=== PATIENT | female | born 1995 | race Caucasian/White ===

== ENCOUNTER 2019-06-21 10:28 | Outpatient (CLI) | payer OTHER, SELFPAY ==
[2019-06-21 11:38] VITALS: BMI 25.4
[2019-06-21 11:44] VITALS: BP 138/81; RESP 18; TEMP 37.3
[2019-06-21 13:50] VITALS: BP 138/81; PULSE 80; RESP 18; TEMP 37.3
== END 2019-06-21 10:29 | disposition home or self-care (01) ==
LOC: OPS 10:30
PROVIDERS: Family Provider Family Medicine; Visit Provider Family Medicine
DX: Z34.80 Encounter for supervision of other normal pregnancy, unspecified trimester (principal); Z31.82 Encounter for Rh incompatibility status; Z67.91 Unspecified blood type, Rh negative
CPT/HCPCS: 36430; 86850; 86900; 90384

== ENCOUNTER 2019-08-20 22:46 | Inpatient (IN) | payer OTHER, SELFPAY ==
[2019-08-20] VITALS (9 sets, daily range): BP systolic 0–152; BP diastolic 0–86; PULSE 74–126; RESP 18; TEMP 36.5–36.8; BMI 25.9
[2019-08-20 23:25] LABS: Basophils % 0.2 %; Eosinophils % 0.2 %; Hematocrit 37.9 % (37.0-47.0); Hemoglobin 12.8 g/dL (11.5-15.3); Lymphocytes # 1.6 10^3/uL (0.8-4.8); Lymphocytes % 14.1 %; Mean Corpuscular HGB Conc 33.8 g/dL (30.0-36.0); Mean Corpuscular Hemoglobin 29.2 pg (28.0-34.0); Mean Corpuscular Volume 86.3 fL (81-99); Mean Platelet Volume 12.2 fL (7.4-10.4); Monocytes # 0.9 10^3/uL (0.2-0.9); Monocytes % 7.8 %; Neutrophils # 8.7 10^3/uL (1.8-7.7); Neutrophils % 77.3 %; Nucleated Red Blood Cells % 0 %; Platelet Count 168 10^3/cmm (130-400); Red Blood Count 4.39 10^6/uL (4.1-5.3); Red Cell Distribution Width 14.5 % (12.1-15.1); White Blood Count 11.2 10^3/uL (4.0-10.0)
[2019-08-20 23:25] LABS: Glucose Point of Care 98 mg/dL (70-110)
[2019-08-21] VITALS (20 sets, daily range): BP systolic 102–146; BP diastolic 53–88; PULSE 73–111; RESP 14–18; TEMP 36.7–37.1
--- NOTE | 2019-08-21 00:39 | P.PCNOB_ITS ---
Delivery Note: Date of delivery: August 21, 2019 This 1 now para 1 female with an EDC of 08/28/2019 began having con tractions early the morning prior to her arrival to [facility] labor and delivery. She tanisha on and off through the day and they slowly became stronger. Around 1800 they became much stronger and she wrapped [facility] Labor and Delivery OB department late in the evening. Upon arrival she was approximately 3 to 4 cm dilated with a bulging bag of water. She was admitt ed to the hospital. Sometime shortly thereafter she had spontaneous rupture of membranes and dilated quickly to 8 to 9 cm dilatation. This physician was called and arrived to the hospital. She was found to be completely dilated and was placed in delivery position. She was able to push within a few contractions and delivered by spontaneous vaginal delivery a healthy, viable female at 0000 a.m. Upon delivery of the head the mouth and nose were suctioned at the perineum and a nuchal cord x1 was reduced. The left shoulder anteriorly followed by the right shoulder posteriorly delivered followed by the remainder of the infant. The was again suctioned after delivery and then laid on mother's abdomen. After approximately 1 minute the umbilical cord was clamped and then cut by the 's father. Umbilical cord had 3 blood vessels. There was a small second-degree episiotomy that extended to approximately 1/3 degree extension. This was repaired using local anesthesia with layered surgical closure and Vicryl suture. There was no other lacerations noted and estimated blood loss was approximately 218 mL. The infant weighed 7 pounds 10 ounces with Apgars of 8 and 9 at 1 and 5 minutes respectively. There was initially some grunting but that resolved with delay of approximately 8 mL of clear fluid and skin to skin with mom. Presently both mother and are doing well. Pre-Delivery Course: Patient was followed by this physician throughout her course without significant problems. Maternal blood type was O- with antibody screen negative. Rubella was immune group B strep was negative. Hepatitis B hepatitis C RPR and HIV were all negative. The patient was a gestational diabetic which was controlled with oral metformin extended release 500 mg daily. She has spontaneous onset of labor early the morning of the day prior to delivery. Delivery: Spontaneous vaginal delivery. A&P Assessment and plan (1) Normal spontaneous vaginal delivery: Patient will be followed for routine postdelivery care. We will monitor glucose as needed. Reevaluation around 07 30 this morning found the patient to be doing well with just mild lochia. She is ambulating well and tolerating a regular diet. Continue routine postdelivery care. Status: Acute Code(s): O80 - Encounter for full-term uncomplicated delivery Coding Level of Care Code Acute Casing Grader for Chg Fwd Diagnoses Normal spontaneous vaginal delivery O80
[2019-08-21 02:42] LABS: Glucose Point of Care 102 mg/dL (70-110)
--- NOTE | 2019-08-21 03:17 | PC.NURSE ---
0238 08/21/2019 This nurse assisted patient to bathroom. Patient noted that she felt as if she was going to pass out. cool rags applied to patients neck, fan circulating air, and accucheck done. Patient drank 2 apple juice containers, stated she felt as if she would be able to ambulate. Patient was assisted back to labor bed by this nurse. Patient tolerated activity well. Will continue to monitor. DARYL LONG
--- NOTE | 2019-08-21 04:10 | NUR.SHIFT ---
0400 08/21/2019 Patient moved to . DARYL RN
[2019-08-21] MEDS: lanolin oint 7 gm 1 APPLIC TOPICAL ×2 (06:52→21:30)
[2019-08-21] MEDS: prenatal vitamin Capsule 1 CAP PO (08:13)
[2019-08-21] MEDS: docusate sodium 100 mg Capsule PO ×2 (08:13→18:26)
[2019-08-21 12:47] LABS: Hematocrit 31.7 % (37.0-47.0); Hemoglobin 10.7 g/dL (11.5-15.3); Mean Corpuscular HGB Conc 33.8 g/dL (30.0-36.0); Mean Corpuscular Hemoglobin 29.2 pg (28.0-34.0); Mean Corpuscular Volume 86.4 fL (81-99); Mean Platelet Volume 11.5 fL (7.4-10.4); Platelet Count 147 10^3/cmm (130-400); Red Blood Count 3.67 10^6/uL (4.1-5.3); Red Cell Distribution Width 14.6 % (12.1-15.1); White Blood Count 14.5 10^3/uL (4.0-10.0)
[2019-08-22 02:10] VITALS: BP 121/83; PULSE 87; RESP 16; TEMP 36.5
[2019-08-22 04:05] VITALS: BP 109/67; PULSE 95; RESP 16; TEMP 36.7
--- NOTE | 2019-08-22 07:03 | P.DS_ITS ---
Discharge Providers CANDY FORMING MACHINE OPERATOR Date of Admission: 08/20/19 22:46 Date of Discharge: 08/22/19 Attending Provider at Admission: Reynaldo Banda MD Attending Provider at Discharge: Reynaldo Banda MD Primary CANDY FORMING MACHINE OPERATOR: Solo Diagnoses at Discharge Discharge Diagnosis (1) Normal spontaneous vaginal delivery: Status: Acute Problem details: Patient delivered by spontaneous vaginal delivery at midnight yesterday. She has done well since delivery. She is ambulating well and tolerating a regular diet without problems. The infant is breast-feeding well and mom is felt to be stable for discharge home. Reason for Visit Reason for Visit: Reason For Visit: CONTRACTIONS Hospital Course Hospital Course: See above, the patient has done extremely well since delivery and is stable for discharge home. Discharge Summary: There have been no problems since delivery and the infant is breast-feeding well. The patient has just mild lochia was no significant clots or cramps. Information Peripartum Data: Infant Delivery Method: Vaginal Physical Exam Const: COMMON NORMALS: no apparent distress, oriented x3 and well nourished GENERAL APPEARANCE: cooperative ORIENTATION/CONSCIOUSNESS: Yes awake Resp: COMMON NORMALS: normal respiratory effort, no retractions, no use of accessory muscles and clear to auscultation bilaterally AUSCULTATION: clear to auscultation bilaterally Cardio: COMMON NORMALS: regular rate, regular rhythm and no murmurs RATE: regular rate RHYTHM: regular rhythm GI: COMMON NORMALS: normal to inspection, nondistended, normoactive bowel sounds, soft to palpation (Fundus is firm.) and non-tender PALPATION: Yes soft (Fundus is firm.) : COMMON NORMALS: Yes no CVA tenderness BLADDER/KIDNEY EXAM: Yes no CVA tenderness Back/Pelvis: COMMON NORMALS: no CVA tenderness Extremity: COMMON NORMALS: normal to inspection, full ROM, normal capillary refill and no pedal edema Neuro: COMMON NORMALS: oriented x3 and CN's II-XII intact bilaterally Psych: COMMON NORMALS: mental status grossly normal Discharge Data Data Completed and Pending: Pending at discharge Category Date Time Status Antibody Identifi cation Routine Lab 08/21/19 05:00 Results Complete Crossmat ch Routine Lab 08/21/19 05:00 Results Rho D Immune Glob ulin Routine Lab 08/21/19 05:00 Results Type and Screen R outine Lab 08/21/19 05:00 Results Labs from last 24 hours 08/21/19 08/21/19 08/21/19 12:29 12:29 05:00 WBC 14.5 H RBC 3.67 L Hgb 10.7 L Hct 31.7 L MCV 86.4 MCH 29.2 MCHC 33.8 RDW 14.6 Plt Count 147 MPV 11.5 H Blood Type O Negative Rho(D) Type Negaive Antibody Screen Positive Antibody Identific ation Anti-D Screen Negative Vitals: Last Vital Signs Temp 97.7 F 08/22/19 02:10 Pulse 87 08/22/19 02:10 Resp 16 08/22/19 02:10 BP 121/83 08/22/19 02:10 Discharge Plan Discharge Patient Disposition: Home, Self-Care Condition: Stable Prescriptions: New Dermoplast (with menthol) 20-0.5 % Aerosol 1 spray topical PRN PRN (Reason: Pain) Qty: 60 RF: 1 ibuprofen 800 mg Tablet 800 mg PO TID Qty: 90 RF: 2 docusate sodium 100 mg Capsule 100 mg PO BID Qty: 60 RF: 1 Lanolin (HPA) 100 % Cream 1 applic topical PRN PRN (Reason: Dryness) Qty: 60 RF: 1 Continued acyclovir 400 mg tablet 400 mg PO DAILY RF: 0 PNV cmb#95-ferrous fumarate-FA [] 28 mg iron- 800 mcg Tablet 1 tab PO DAILY RF: 0 Discontinued metformin 500 mg Tablet 500 mg PO DAILY RF: 0 Discharge Orders: Discharge Order (Routine); Ordered 08/22/19 Ordered By: Reynaldo Banda Referrals: Reynaldo Banda MD [Family Provider] - Discharge Diet: Regular Discharge Activity: Resume usual activity Activity Restrictions/Additional Instructions: Please make appointment with this physician for 6 weeks and as needed. Discharge Attestations CANDY FORMING MACHINE OPERATOR Time Spent in Discharge Care*: less than 30 min Specific Discharge Activities: Specific discharge activities: educating patient, documenting/other paperwork and evaluating patient/reviewing data Status at Discharge: Cognitive status at discharge: cognitively intact , Behavioral status at discharge: cooperative , Functional status at discharge: independent ambulation Overall status at discharge: patient is back to baseline Coding Level of Care Code Acute Physician President for g Fwd Diagnoses Normal spontaneous vaginal delivery O80
[2019-08-22 08:45] VITALS: BP 109/72; PULSE 86; RESP 16; TEMP 36.7
[2019-08-22] MEDS: prenatal vitamin Capsule 1 CAP PO (08:51)
[2019-08-22] MEDS: docusate sodium 100 mg Capsule PO (08:53)
[2019-08-22 11:30] VITALS: BP 131/84; PULSE 83; RESP 16; TEMP 36.6
== END 2019-08-22 11:40 | disposition home or self-care (01) | DRG 807 ==
LOC: OBGYN 08-22 07:03 → OPOB 08-23 08:31
PROVIDERS: Admitting Provider Family Medicine; Family Provider Family Medicine; Visit Provider Family Medicine
DX: O24.425 Gestational diabetes mellitus in childbirth, controlled by oral hypoglycemic drugs (principal); Z37.0 Single live birth; O70.1 Second degree perineal laceration during delivery; Z3A.38 38 weeks gestation of pregnancy; Z79.84 Long term (current) use of oral hypoglycemic drugs
CPT/HCPCS: 12345; 36415; 36416; 59409; 80500; 82962; 85025; 85027; 85460; 86850; 86870; 86900; 90384; 96372; 98960; 99211

== ENCOUNTER 2022-07-01 06:33 | Outpatient (CLI) | payer OTHER, SELFPAY ==
--- NOTE | 2022-07-01 | US_ITS ---
WS: [id number] EARLY OBSTETRICAL ULTRASOUND (<14 WEEKS). HISTORY: 1ST TRI W/GDM COMPARISON: None available. Single intrauterine gestational sac is identified. Cardiac activity at 167 BPM. [place]-rump length samina sures 3.9 cm which corresponds to a gestation of 10w6d. Normal-appearing yolk sac and amnion demonstr ated. No subchorionic hemorrhage. No free fluid. Normal size ovaries with no mass. Small corpus luteum cyst RIGHT ovary. US/US OB <= 14 weeks fetus [id number] IMPRESSION: 1. Single intrauterine gestation of 10 weeks 6 days with an EDC of 01/21/2023. 2. Normal cardiac activity.
== END 2022-07-01 06:34 | disposition home or self-care (01) ==
LOC: RAD 06:38
PROVIDERS: PCP Family Medicine; Visit Provider Family Medicine
DX: Z34.91 Encounter for supervision of normal pregnancy, unspecified, first trimester (principal); Z86.32 Personal history of gestational diabetes; Z3A.14 14 weeks gestation of pregnancy
CPT/HCPCS: 76801

== ENCOUNTER 2022-10-25 11:09 | Emergency (ER) | payer OTHER, SELFPAY ==
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
[2022-10-25 11:19] VITALS: BP 109/66; PULSE 79; RESP 14; O2SAT 100; BMI 24.5
== END 2022-10-25 11:43 | disposition home or self-care (01) ==
PROVIDERS: Emergency Provider Emergency Medicine; PCP Family Medicine
DX: O9A.213 Injury, poisoning and certain other consequences of external causes complicating pregnancy, third trimester (principal); S13.4XXA Sprain of ligaments of cervical spine, initial encounter; Z3A.28 28 weeks gestation of pregnancy; V89.2XXA Person injured in unspecified motor-vehicle accident, traffic, initial encounter
CPT/HCPCS: 99282

== ENCOUNTER 2022-10-25 11:37 | Outpatient (CLI) | payer OTHER, SELFPAY ==
[2022-10-25] VITALS (11 sets, daily range): BP systolic 89–110; BP diastolic 52–70; PULSE 73–86; RESP 17; TEMP 37.4–37.5; BMI 24.5
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
== END 2022-10-25 14:19 | disposition home or self-care (01) ==
LOC: OPOB 11:39 → OBGYN 11:40
PROVIDERS: PCP Family Medicine; Visit Provider Family Medicine
DX: Z04.1 Encounter for examination and observation following transport accident (principal); Z3A.00 Weeks of gestation of pregnancy not specified
CPT/HCPCS: 59025; 76819; 99211

== ENCOUNTER 2023-01-11 23:56 | Inpatient (IN) | payer OTHER, SELFPAY ==
[2023-01-11 21:40] VITALS: BMI 25.9
[2023-01-11 21:53] VITALS: BP 121/76; PULSE 94
[2023-01-11 22:21] VITALS: RESP 16
[2023-01-11 22:32] VITALS: BP 108/59; PULSE 84
[2023-01-11 22:39] VITALS: BP 114/64; PULSE 95
[2023-01-11 22:54] VITALS: BP 115/64; PULSE 75
[2023-01-11 23:03] LABS: Basophils % 0.3 %; Eosinophils % 0.3 %; Hematocrit 33.7 % (37.0-47.0); Hemoglobin 11.3 g/dL (11.5-15.3); Lymphocytes # 2.6 10^3/uL (0.8-4.8); Lymphocytes % 21.3 %; Mean Corpuscular HGB Conc 33.5 g/dL (30.0-36.0); Mean Corpuscular Hemoglobin 28.6 pg (28.0-34.0); Mean Corpuscular Volume 85.3 fl (81-99); Mean Platelet Volume 10.8 fL (7.4-10.4); Monocytes % 8.5 %; Neutrophils % 68.4 %; Nucleated Red Blood Cells % 0 %; Platelet Count 187 10^3/cmm (130-400); Red Blood Count 3.95 10^6/uL (4.1-5.3); Red Cell Distribution Width 12.9 % (12.1-15.1)
[2023-01-12] VITALS (24 sets, daily range): BP systolic 105–172; BP diastolic 55–89; PULSE 70–114; RESP 16–17; TEMP 36.1–36.7
[2023-01-12] MEDS: lidocaine 2% INJ 20 mL INJECTION (00:40)
--- NOTE | 2023-01-12 01:13 | PM.OPHPUD ---
Labor & Delivery H&P Update Date of Procedure: January 12, 2023 Date H&P Performed: 01/11/23 Admission Diagnosis: 28-year-old 3 para 1-0-1-1 with an estimated gestational age of 38 weeks and 5 days who presented to the hospital in active labor Planned procedure: Spontaneous vaginal delivery Other information: The patient had a relatively unremarkable . Her blood type was O-. Her antibody screen was negative. She passed her glucose screen. She is rubella immune. The remainder of her infectious disease profile was within normal limits. She was GBS negative. She does have a history of genital herpes and has received acyclovir since 36 weeks. She began having contractions a few days prior to admission to the hospital. They gradually increased, but got progressively worse today after doctor's appointment. Her membranes were stripped at that appointment. Related Problem List Diagnoses (1) 38 weeks gestation of : A&P Assessment and plan (1) 38 weeks gestation of : I anticipate routine labor and spontaneous vaginal delivery. Status: Acute
--- NOTE | 2023-01-12 01:36 | PM.DELIVERY ---
Delivery Note: Date of delivery: January 12, 2023 Pre-delivery diagnoses: 28-year-old 3 para 1-0-1-1 at 38 weeks estimated gestational age in active labor Post-delivery diagnoses: Status post spontaneous vaginal delivery Procedure: Spontaneous vaginal delivery Delivering Physician: Kian Du Estimated blood loss (mL): 100 Pre-Delivery Course: The patient presented to the hospital in active labor. Her membranes were intact. She did not receive an epidural. She progressed to an anterior lip without difficulty. An amniotomy was performed. She then progressed to complete within a couple of contractions. Delivery: DELIVERY: The patient progressed to complete without difficulty. She delivered a male with a weight of 6 pounds 10 ounces with Apgars of 8, 9. The baby was delivered from the JADE position and placed on the mother's abdomen. The cord was then clamped and cut. There was no nuchal cord. There was no meconium. The placenta and 3 vessel cord were delivered intact shortly thereafter. The perineum and vaginal vault were carefully examined. No lacerations were noted. Both the mother and the baby were in stable condition. Post-Delivery Status: Good A&P Assessment and plan (1) 38 weeks gestation of : I anticipate routine care (2) Spontaneous vaginal delivery: Coding Level of Care Code Acute Code for Chg Fwd Diagnoses 38 weeks gestation of Z3A.38 Spontaneous vaginal delivery O80
[2023-01-12] MEDS: lanolin oint 7 gm 1 APPLIC TOPICAL (02:31)
[2023-01-12] MEDS: benzocaine-menthol 78 gm Canister 1 SPRAY TOPICAL (02:31)
[2023-01-12] MEDS: HYDROcodone-acetaminophen 5-325 mg Tablet PO ×2 (04:50→12:50)
[2023-01-12] MEDS: ibuprofen 800 mg tablet PO ×3 (09:14→20:52)
[2023-01-12] MEDS: prenatal vitamin Capsule 1 CAP PO (09:14)
[2023-01-12] MEDS: docusate sodium 100 mg Capsule PO ×2 (09:14→18:27)
[2023-01-12 13:43] LABS: Hematocrit 35.5 % (37.0-47.0); Hemoglobin 12.2 g/dL (11.5-15.3); Mean Corpuscular HGB Conc 34.4 g/dL (30.0-36.0); Mean Corpuscular Volume 84.5 fl (81-99); Mean Platelet Volume 10.4 fL (7.4-10.4); Platelet Count 188 10^3/cmm (130-400); Red Cell Distribution Width 13.1 % (12.1-15.1)
--- NOTE | 2023-01-12 18:23 | PC.NURSE ---
educated and assisted pt with sitz bath use
[2023-01-13 05:33] VITALS: BP 95/50; PULSE 64; TEMP 36.2
--- NOTE | 2023-01-13 06:56 | PM.OBGYDC ---
Discharge Providers DISPENSARY ATTENDANT Date of Admission: 01/11/23 23:56 Date of Discharge: 01/13/23 Attending Provider at Admission: Kian Du MD Attending Provider at Discharge: Kian Du MD Primary Care Provider: Reynaldo Banda MD Diagnoses at Discharge Discharge Diagnosis (1) 38 weeks gestation of : Status: Acute (2) Spontaneous vaginal delivery: Status: Acute Reason for Visit Reason for Visit: Contractions Hospital Course Hospital Course The patient presented to the hospital in active labor. She had an unremarkable labor. She progressed to complete and had an unremarkable delivery. Her course was also unremarkable. She breast-fed well. Her pain was well controlled. Her bleeding was minimal. Information Peripartum Data: Infant Delivery Method: Vaginal Physical Exam Narrative: The patient is alert. She appears comfortable. Her heart has a regular rate and rhythm with no murmurs appreciated. Lungs are clear to auscultation bilaterally. Her fundus is firm and below the umbilicus. Discharge Data Studies Completed and Pending Laboratory Results WBC 19.0 10^3/uL (4.0-10.0) H 01/12/23 13:32 RBC 4.20 10^6/uL (4.1-5.3) 01/12/23 13:32 Hgb 12.2 g/dL (11.5-15.3) 01/12/23 13:32 Hct 35.5 % (37.0-47.0) L 01/12/23 13:32 MCV 84.5 fl (81-99) 01/12/23 13:32 MCH 29.0 pg (28.0-34.0) 01/12/23 13:32 MCHC 34.4 g/dL (30.0-36.0) 01/12/23 13:32 RDW 13.1 % (12.1-15.1) 01/12/23 13:32 Plt Count 188 10^3/cmm (130-400) 01/12/23 13:32 MPV 10.4 fL (7.4-10.4) 01/12/23 13:32 Neut % (Auto) 68.4 % 01/11/23 22:00 Lymph % (Auto) 21.3 % 01/11/23 22:00 Benson % (Auto) 8.5 % 01/11/23 22:00 Eos % (Auto) 0.3 % 01/11/23 22:00 Baso % (Auto) 0.3 % 01/11/23 22:00 Neut # (Auto) 8.20 10^3/uL (1.8-7.7) H 01/11/23 22:00 Lymph # (Auto) 2.6 10^3/uL (0.8-4.8) 01/11/23 22:00 Benson # (Auto) 1.0 10^3/uL (0.2-0.9) H 01/11/23 22:00 Eos # (Auto) 0.0 10^3/uL (0.0-0.8) 01/11/23 22:00 Baso # (Auto) 0.0 10^3/uL (0.0-0.1) 01/11/23 22:00 Nucleated RBC % (auto) 0 % 01/11/23 22:00 Nucleated RBCs # 0.0 /100WBC 01/11/23 22:00 Blood Type O Negative 01/11/23 21:45 Rho(D) Type Negative 01/11/23 21:45 Antibody Screen Positive 01/11/23 21:45 Antibody Identification Anti-D 01/11/23 21:45 Screen Negative (Negative) 01/12/23 13:25 Vitals Last Vital Signs Temp 97.2 F L 01/13/23 05:33 Pulse 64 01/13/23 05:33 Resp 16 01/12/23 15:51 BP 95/50 01/13/23 05:33 O2 Del Method Room Air 01/11/23 21:40 Discharge Plan Discharge Patient Disposition: Home Condition: Stable Prescriptions: Continued ibuprofen 800 mg Tablet 800 mg PO TID Qty: 45 2RF PNV cmb#95-ferrous fumarate-FA [] 28 mg iron- 800 mcg Tablet 1 tab PO DAILY Qty: 90 0RF docusate sodium 100 mg Capsule 100 mg PO BID Qty: 20 1RF Discontinued acyclovir 400 mg tablet 400 mg PO DAILY Dermoplast (with menthol) 20-0.5 % Aerosol 1 spray topical PRN PRN (Reason: Pain) Qty: 60 1RF Lanolin (HPA) 100 % Cream 1 applic topical PRN PRN (Reason: Dryness) Qty: 60 1RF Discharge Orders: Discharge Order (Routine); Ordered 01/13/23 Ordered By: Kian Du Referrals: Kian Du MD [Physician] - 6 Weeks Discharge Diet: Advance as tolerated and As Directed Discharge Activity: Limit activity as instructed Patient Instructions: Depression (DC), Opioid Safety (DC), Preeclampsia and Eclampsia After Delivery (GEN), Hemorrhage (DC), OB Discharge Report, OB Food/Drug Interaction Guide, OB Care at Home, Opioid Safety, OB Vaginal Deliveries, Abnormal Bleeding Discharge Attestations DISPENSARY ATTENDANT Time Spent in Discharge Care*: less than 30 min Status at Discharge: Cognitive status at discharge: cognitively intact, Behavioral status at discharge: cooperative, Coding Level of Care Code Acute Code for Chg Fwd Diagnoses 38 weeks gestation of Z3A.38 Spontaneous vaginal delivery O80
[2023-01-13 08:06] VITALS: BP 121/59; PULSE 81; TEMP 36.3
[2023-01-13 08:10] VITALS: BP 121/59; PULSE 81; RESP 15; TEMP 36.3
[2023-01-13] MEDS: ibuprofen 800 mg tablet PO (08:33)
[2023-01-13] MEDS: prenatal vitamin Capsule 1 CAP PO (08:33)
[2023-01-13] MEDS: docusate sodium 100 mg Capsule PO (08:33)
== END 2023-01-13 08:50 | disposition home or self-care (01) | DRG 807 ==
LOC: OPOB 23:57 → OBGYN 23:57
PROVIDERS: Admitting Provider Family Medicine; PCP Family Medicine; Visit Provider Family Medicine
DX: O98.32 Other infections with a predominantly sexual mode of transmission complicating childbirth (principal); Z37.0 Single live birth; Z3A.38 38 weeks gestation of pregnancy
CPT/HCPCS: 36415; 36430; 59025; 59409; 80503; 85025; 85027; 85460; 86850; 86870; 86900; 90384; 99211

== ENCOUNTER 2024-03-01 07:18 | Outpatient (CLI) | payer MEDICAID, SELFPAY ==
--- NOTE | 2024-03-01 07:21 | US_ITS ---
WS: [id number] EARLY OBSTETRICAL ULTRASOUND (<14 WEEKS). HISTORY: SUPERVISION OF OTHER NORMAL ,FIRST TRIMESTER COMPARISON: None available. Single intrauterine gestational sac is identified. Cardiac activity at 155 BPM. [place]-rump length samina sures 1.4 cm which corresponds to a gestation of 7w5d. Normal-appearing yolk sac and amnion demonstra silva. No subchorionic hemorrhage. No free fluid. Mildly enlarged RIGHT ovary measuring 3.8 x 2.4 x 2.8 cm. LEFT ovary is not identified. US/US OB <=14 wk fetus w transvag IMPRESSION: 1. Single intrauterine gestation of 7w5d with an EDC of 10/13/2024. 2. Normal cardiac activity.
== END 2024-03-01 07:19 | disposition home or self-care (01) ==
LOC: RAD 07:18
PROVIDERS: PCP Family Medicine; Visit Provider Family Medicine
DX: Z34.81 Encounter for supervision of other normal pregnancy, first trimester (principal)
CPT/HCPCS: 76801; 76817

== ENCOUNTER 2024-05-24 12:27 | Outpatient (CLI) | payer MEDICAID, SELFPAY ==
--- NOTE | 2024-05-24 12:31 | USR_ITS ---
PROCEDURE INFORMATION: Exam: US After First Trimester, Transabdominal Exam date and time: 05/24/2024 12:44 PM Age: 29 years old Clinical indication: Screening exam; Routine US, uterus; Additional info: Anatomy check TECHNIQUE: Imaging protocol: Real-time transabdominal obstetrical ultrasound of the maternal pelvis and a second or third trimester with image documentation. COMPARISON: US OB <=14 wk fetus w transvag 03/01/2024 7:33 AM FINDINGS: Gestation: Single intrauterine gestation. heart rate: 141 bpm presentation and position: Breech presentation. Placenta: Posterior grade 1 placenta. The relationship of the distal placental margin to the endocervical os is not established on this exam. Amniotic fluid (Qualitative): Amniotic fluid is subjectively normal for gestational age. Amniotic fluid index: Not measured ANATOMY: midline falx: falx is normal. Cavum septum pellucidum is obscured by position. cerebellum: cerebellum is normal. lateral ventricles: lateral ventricles are normal. cisterna magna: cisterna magna is normal. choroid plexus: choroid plexus is normal. face: No anomaly of the upper lip or nose is visible in the coronal plane although the lip is partially obscured. facial profile is normal. heart four-chamber view, heart size and position: Normal 4 chamber view, size and position. heart right ventricular outflow tract: right ventricular outflow tract is normal. heart left ventricular outflow tract: left ventricular outflow tract is normal. kidneys: Obscured by position. stomach: There is fluid in the stomach. urinary bladder: There is fluid in the bladder. spine: spine is normal. Umbilical cord and insertion: Umbilical cord insertion site on the abdominal wall is obscured by position. Umbilical cord insertion site on the abdominal wall is normal (best visualized in the sagittal plane on series 1, image 1030). Three-vessel cord is not demonstrated. upper limbs: No anomaly of the visualized arms and hands. lower limbs: No anomaly of the visualized legs and feet. external genitalia: Male BIOMETRY: Gestational age (AUA): 19 weeks 5 days Estimated due date (AUA): 10/13/2024 by current ultrasound (10/10/2024 by established dates) Estimated weight: 310 g (24th percentile) Biparietal diameter (BPD): 4.36 cm. EGA (BPD) is 19 w 1 d. 14.3 % percentile Head circumference (HC): 17.27 cm. EGA (HC) is 19 w 6 d. 27.7 % percentile Abdominal circumference (AC): 14.28 cm. EGA (AC) is 19 w 4 d. 27.5 % percentile Femur length (FL): 3.18 cm. EGA (FL) is 19 w 6 d. 33 % percentile HC/AC: 1.21. (Normal range: 1.08 - 1.26) FL/HC: 18.41. (Normal range: 16.6 - 19.37) FL/BPD: 72.94 FL/AC: 22.27 MATERNAL: Uterus: Unremarkable. Cervix: The cervix is closed. Cervical length cannot be accurately measured due to decompression of the lower uterine segment. Right ovary/adnexa: Obscured by lack of adequate acoustic window. Left ovary/adnexa: Obscured by lack of adequate acoustic window. Intraperitoneal space: No intraperitoneal free fluid. US/US OB >= 14 weeks fetus [id number] IMPRESSION: 1. Single intrauterine gestation. cardiac activity is present. 2. Estimated gestational age is 19 weeks 5 days by current ultrasound for LOUISE of 10/13/2024 which compares to LOUISE of 10/10/2024 by established dates and 10/13/2024 by prior ultrasound. 3. No anomaly detected on screening anatomic ultrasound. 4. nose and upper lip is partially obscured. 5. cavum septum pellucidum is obscured. 6. kidneys are obscured. 7. Three-vessel cord is obscured.
== END 2024-05-24 12:28 | disposition home or self-care (01) ==
LOC: RAD 12:28
PROVIDERS: PCP Family Medicine; Visit Provider Family Medicine
DX: Z34.81 Encounter for supervision of other normal pregnancy, first trimester (principal); A60.00 Herpesviral infection of urogenital system, unspecified
CPT/HCPCS: 76805

== ENCOUNTER 2024-06-28 07:15 | Outpatient (CLI) | payer MEDICAID, SELFPAY ==
--- NOTE | 2024-06-28 07:38 | USR_ITS ---
PROCEDURE INFORMATION: Exam: US , Limited Exam date and time: 06/28/2024 7:45 AM Age: 29 years old Clinical indication: Screening exam; Routine US, uterus; Additional info: Follow up for anatomy TECHNIQUE: Imaging protocol: Real-time ultrasound of the maternal uterus with image documentation. Exam focused on the clinical indication. COMPARISON: US OB >= 14 weeks fetus [id number] 05/24/2024 12:44 PM FINDINGS: Gestation: Single live intrauterine gestation. An additional survey is not performed. heart rate: 145 bpm. presentation and position: Breech presentation. Placenta: Posterior placenta without obvious previa. ANATOMY: face: Normal-appearing nose and lips. kidneys: Normal-appearing kidneys. Umbilical cord and insertion: A three-vessel umbilical cord is identified. BIOMETRY: Gestational age (AUA): Gestational age is stated as 24 weeks and 5 days which gives an estimated date of delivery of October 13, 2024. MATERNAL: Cervix: A few small nabothian cysts in the cervix. Otherwise, grossly unremarkable cervix. Other findings: Normal-appearing cavum septum pellucidum. US/US OB limited [id number] IMPRESSION: 1. A few small nabothian cysts in the cervix. Otherwise, grossly unremarkable cervix. 2. Limited survey as above. 3. Additional details as above.
== END 2024-06-28 07:27 | disposition home or self-care (01) ==
PROVIDERS: PCP Family Medicine; Visit Provider Family Medicine
DX: Z36.2 Encounter for other antenatal screening follow-up (principal); Z3A.24 24 weeks gestation of pregnancy; N88.8 Other specified noninflammatory disorders of cervix uteri
CPT/HCPCS: 76815

== ENCOUNTER 2024-07-26 11:15 | Outpatient (CLI) | payer MEDICAID, SELFPAY ==
[2024-07-26 11:20] VITALS: BMI 26.1
[2024-07-26 12:11] VITALS: BP 118/75; PULSE 86
[2024-07-26 12:23] LABS: Bilirubin Urine Negative (Negative); Blood Urine Negative (Negative); Glucose Urine UA Negative (Normal); Ketones Urine 1+ (Negative); Leukocyte Esterase Urine Negative (Negative); Nitrate Urine Negative (Negative); Protein Urine Negative (Negative); Specific Gravity, Urine 1.012 (1.005-1.030); Urine Appearance Clear (CLEAR); Urine Color Yellow (Yellow); Urobilinogen Urine 0.2 mg/dL (Negative)
[2024-07-26 12:25] LABS: Bacteria Urine None Seen /hpf; Hyaline Casts Urine 0-4 /lpf; RBC Urine 0-2 /hpf (0-2); Squamous Epithelial Cell Urine 0-5 /hpf (0-5); WBC Urine 0-5 /hpf (0-5)
[2024-07-26 12:30] VITALS: BP 126/75; PULSE 100
== END 2024-07-26 13:02 | disposition home or self-care (01) ==
LOC: OPOB 11:19 → OBGYN 11:21
PROVIDERS: PCP Family Medicine; Visit Provider Family Medicine
DX: O26.899 Other specified pregnancy related conditions, unspecified trimester (principal); Z3A.00 Weeks of gestation of pregnancy not specified; R10.9 Unspecified abdominal pain
CPT/HCPCS: 59025; 81001; 99211

== ENCOUNTER 2024-09-29 20:25 | Outpatient (CLI) | payer MEDICAID, SELFPAY ==
[2024-09-29] VITALS (7 sets, daily range): BP systolic 114–136; BP diastolic 67–84; PULSE 76–126; BMI 27.6
[2024-09-30 00:06] VITALS: BP 123/81; PULSE 103
[2024-09-30 00:16] VITALS: BP 123/81; PULSE 98; O2SAT 97
== END 2024-09-30 00:22 | disposition home or self-care (01) ==
LOC: OPOB 20:26 → OBGYN 20:27
PROVIDERS: PCP Family Medicine; Visit Provider Family Medicine
DX: O26.899 Other specified pregnancy related conditions, unspecified trimester (principal); Z3A.00 Weeks of gestation of pregnancy not specified; R10.9 Unspecified abdominal pain
CPT/HCPCS: 59025; 99211

== ENCOUNTER 2024-09-30 04:00 | Inpatient (IN) | payer MEDICAID, SELFPAY ==
[2024-09-30] VITALS (41 sets, daily range): BP systolic 87–129; BP diastolic 53–90; PULSE 70–107; RESP 16–17; TEMP 37.1–37.2; BMI 27.6
[2024-09-30 03:44] LABS: Basophils % 0.2 %; Eosinophils % 0.2 %; Hematocrit 33.9 % (36-47); Lymphocytes # 2.7 10^3/uL (0.8-4.8); Lymphocytes % 20.6 %; Mean Corpuscular HGB Conc 33.6 g/dL (30-55); Mean Corpuscular Hemoglobin 27.7 pg (27-33); Mean Corpuscular Volume 82.3 fl (85-98); Mean Platelet Volume 10.6 fL (7.4-10.4); Monocytes # 0.7 10^3/uL (0.2-0.9); Monocytes % 5.2 %; Neutrophils # 9.58 10^3/uL (1.8-7.7); Nucleated Red Blood Cells % 0 %; Platelet Count 195 10^3/cmm (157-399); Red Blood Count 4.12 10^6/uL (3.85-5.65); Red Cell Distribution Width 12.4 % (12.1-15.1); White Blood Count 13.15 10^3/uL (3.29-11.43)
--- NOTE | 2024-09-30 07:37 | PM.OBGYHP ---
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 She presented to triage with SVE 3/65/-3 and remained unchanged over several hours and discharged home. Returned with increasing contractions and SVE 5.5/65/-3. PMHx includes history of gestational diabetes in her first and HSV- currently on valacyclovir prophylaxis. Gestational diabetes testing has been negative x 2 in this . Denies LOF, vaginal bleeding. Good movement. care was good and starting in the first trimester. 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 Present Details : 4 Para: 2 Labs Blood type OB HPI: 0 (-) negative Rubella: Immune RPR: Negative GBS: Negative HBsAG: Negative Other Lab Information: Antibody screen negative x 2 GC/Chlamydia negative UCx wnl Hep C ab negative HIV negative Initial H/H 13.0/38.4 1hr GTT passed x 2 (87, 96) 3rd trimester H/H 11.4/33.6 Review of Systems Const: Denies: fever(s) or chills Card: Denies: chest pain, palpitations or edema Resp: Denies: dyspnea or wheezing Skin/Breast: Denies: rash or pruritus Medications/Allergies Home Medications ?Medication ?Instructions ?Recorded ?Confirmed ?Last Taken ?Type vit no.95-ferrous 1 tab PO DAILY #90 tabs 01/13/23 09/30/24 01/12/23 Rx fumarate 28 mg-folic acid 800 mcg tablet () valacyclovir 500 mg PO 2XD 09/29/24 09/30/24 Unknown History Allergies Allergy/AdvReac Type Severity Reaction Status Date / Time No Known Allergies Allergy Verified 09/30/24 04:48 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 PFSH: Medical History (Updated 09/30/24 @ 07:51 by Jaz Trinidad DO) No pertinent past medical history Social History Substance/Drug Use: never History History History 4 Term 2 0 Miscarriages/Ectopic 1 Living Children 2 Vitals/I&O/Wt Last Vital Signs Pulse 95 09/30/24 07:30 Resp 16 09/30/24 04:08 BP 100/65 09/30/24 07:30 O2 Del Method Room Air 09/30/24 04:23 Weight last 48 hrs Weight 161 lb Physical Exam Const: COMMON NORMALS: no acute distress, healthy appearing, alert and well nourished Resp: COMMON NORMALS: normal respiratory effort and clear to auscultation bilaterally Cardio: COMMON NORMALS: regular rate, regular rhythm, S1 normal heart sound present, S2 normal heart sound present and No murmurs present (Cardio) Extremity: NARRATIVE EXTREMITY EXAM: Trace LE edema Psych: COMMON NORMALS: mental status grossly normal and speech normal Data 09/30/24 03:39 Results Labs OB ([facility]): Blood Type O Negative 09/30/24 Antibody Screen Positive 09/30/24 Hct 33.9 % (36-47) L 09/30/24 Hgb 11.40 g/dL (11.27-16.99) 09/30/24 Rho(D) Type Rh negative 09/30/24 Plt Count 195 10^3/cmm (157-399) 09/30/24 A&P Assessment and plan (1) Term : (2) Spontaneous onset of labor: Plan 29yo at 38w4d presenting for labor. Admit for labor. SVE 5.5/65/-3, vertex per nursing. Routine CBC, blood typing. Intermittent EFM as long as category I. Fentanyl protocol- may have epidural when/if desired. Expectant management at this time. PDMP PDMP Reviewed: Not Reviewed Attestations Medical Necessity Statement*: Nyla Pñea's hospital stay will require greater than 2 midnights for labor and delivery and care. Coding Level of Care Code Acute Code for Chg Fwd Diagnoses Term Z34.90 Spontaneous onset of labor
--- NOTE | 2024-09-30 13:14 | P.PCNOB_ITS ---
Delivery Note: Date of delivery: September 30, 2024 Pre-delivery diagnoses: Term Spontaneous onset of labor Hx recurrent genital HSV Rh negative blood type Post-delivery diagnoses: Term delivery of viable male Procedure: Spontaneous vaginal delivery Delivering Physician: Jaz Trinidad DO Estimated blood loss (mL): 150 Pre-Delivery Course: Admitted on 09/30/2024 with of 5.5/65/-3 with contractions every 4 minutes. She slowly progressed to SVE of 9/90/-2 and at 1246 AROM was performed with large amount of clear fluid. Overall noted generally category 1 heart tones during labor however did have intermittent and at times recurrent variables with contractions. She then quickly progressed to complete. Delivery: Patient progressed to complete. Patient placed in lithotomy position. Patient pushed with adequate effort. Head delivered in JADE position, loose nuchal cord was present. Shoulders and rest of body delivered without difficulty with no anesthesia. Mouth and nares bulb suctioned. Cord clamped and cut after 1 minute delay. Infant placed on maternal abdomen. Placenta spontaneously delivered and noted to be intact. She declined Pitocin, however fundus was noted to be firm and not deemed necessary at this time. The vagina and cervix were inspected and no lacerations were noted. 2 periurethral abrasions were noted however were noted to be hemostatic. Fundus was again noted to be firm. Male born at 1259 with 9/9 weighing 6 pounds 14 ounces and measuring 20.5 in length. 12.5 head circumference and 12.25 circumference. Placenta noted to be intact with centrally inserted umbilical cord and three- vessel cord. Of note was noted to have true knot in umbilical cord. Complications: Maternal none Infant none History History History 4 Term 3 0 Miscarriages/Ectopic 1 Living Children 3 A&P Assessment and plan (1) Spontaneous vaginal delivery: PDMP PDMP Reviewed: Not Reviewed Coding Level of Care Code Acute Code for Chg Fwd Diagnoses Spontaneous vaginal delivery O80
[2024-09-30] MEDS: benzocaine-menthol 78 gm Canister 1 SPRAY TOPICAL (13:32)
[2024-09-30] MEDS: lanolin oint 7 gm 1 APPLIC TOPICAL (13:33)
[2024-09-30] MEDS: acetaminophen 325 mg Tablet 650 MG PO (13:33)
[2024-09-30] MEDS: ibuprofen 800 mg tablet PO (13:33)
[2024-09-30 21:28] LABS: Hematocrit 32.4 % (36-47); Mean Corpuscular HGB Conc 33.3 g/dL (30-55); Mean Corpuscular Hemoglobin 28.3 pg (27-33); Mean Platelet Volume 10.5 fL (7.4-10.4); Platelet Count 191 10^3/cmm (157-399); Red Blood Count 3.81 10^6/uL (3.85-5.65); Red Cell Distribution Width 12.3 % (12.1-15.1); White Blood Count 20.99 10^3/uL (3.29-11.43)
[2024-10-01] VITALS: BP 132/65; PULSE 72; TEMP 36.8
[2024-10-01 10:00] VITALS: BP 115/70; PULSE 78; RESP 16; TEMP 36.7
[2024-10-01 10:53] VITALS: BP 105/75; PULSE 71; RESP 16; TEMP 36.7
--- NOTE | 2024-10-01 12:20 | P.DS_ITS ---
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 She slowly progressed to SVE of 9/90/-2 and at 1246 AROM was performed with large amount of clear fluid. Overall noted generally category 1 heart tones during labor however did have intermittent and at times recurrent variables with contractions. She then quickly progressed to complete. Delivery: Patient progressed to complete. Patient placed in lithotomy position. Patient pushed with adequate effort. Head delivered in JADE position, loose nuchal cord was present. Shoulders and rest of body delivered without difficulty with no anesthesia. Mouth and nares bulb suctioned. Cord clamped and cut after 1 minute delay. Infant placed on maternal abdomen. Placenta spontaneously delivered and noted to be intact. She declined Pitocin, however fundus was noted to be firm and not deemed necessary at this time. The vagina and cervix were inspected and no lacerations were noted. 2 periurethral abrasions were noted however were noted to be hemostatic. Fundus was again noted to be firm. Male born at 1259 with 9/9 weighing 6 pounds 14 ounces and measuri ng 20.5 in length. 12.5 head circumference and 12.25 circumference. Placenta noted to be intact with centrally inserted umbilical cord and three- vessel cord. Of note was noted to have true knot in umbilical cord. Complications: Maternal none none course: Patient underwent on 09/30/24. course was uncomplicated. Following delivery patient ambulated well, tolerated a normal diet without nausea or vomiting. Pain was well controlled on PO medications, well, no leg/calf pain, no calf/leg swelling, normal urination, passing gas and normal bowel movements. Vaginal bleeding thin lochia and decreasing. labs significant for hemoglobin 10.8 down from 11.4 on admission. Infant noted to have RH+ blood- rhogam given. Follow-up planned for 2 and 6 weeks . Warning signs for endometritis, pre- eclampsia, DVT/PE, mastitis were reviewed, discussed additional warning signs including increased vaginal bleeding, worsening abdominal pain. Pelvic rest and activity precautions reviewed as well. She is discharged on 10/01/24 in stable condition. Information Peripartum Data: Delivery Method: Vaginal Physical Exam Const: COMMON NORMALS: no acute distress, healthy appearing, alert and well nourished Resp: COMMON NORMALS: normal respiratory effort and clear to auscultation bilaterally AUSCULTATION: clear to auscultation bilaterally Cardio: COMMON NORMALS: regular rate, regular rhythm, S1 normal heart sound present, S2 normal heart sound present and No murmurs present (Cardio) RATE: regular rate RHYTHM: regular rhythm HEART SOUNDS: S1 normal heart sound present and S2 normal heart sound present Extremity: NARRATIVE EXTREMITY EXAM: Trace LE edema Neuro: SENSORIUM/ORIENTATION: Yes alert Psych: COMMON NORMALS: mental status grossly normal and speech normal SPEECH: Yes normal speech History History History 4 Term 3 0 Miscarriages/Ectopic 1 Living Children 3 Discharge Data Studies Completed and Pending Laboratory Results WBC 20.99 10^3/uL (3.29-11.43) H 09/30/24 21: RBC 3.81 10^6/uL (3.85-5.65) L 09/30/24 21:22 Hgb 10.80 g/dL (11.27-16.99) L 09/30/24 21:22 Hct 32.4 % (36-47) L 09/30/24 21: MCV 85.0 fl (85-98) 09/30/24 21:22 MCH 28.3 pg (27-33) 09/30/24 21: MCHC 33.3 g/dL (30-55) 09/30/24 21: RDW 12.3 % (12.1-15.1) 09/30/24 21: Plt Count 191 10^3/cmm (157-399) 09/30/24 21: MPV 10.5 fL (7.4-10.4) H 09/30/24 21:22 Neut % (Auto) 73.0 % 09/30/24 03:39 Lymph % (Auto) 20.6 % 09/30/24 03:39 [place] % (Auto) 5.2 % 09/30/24 03:39 Eos % (Auto) 0.2 % 09/30/24 03:39 Baso % (Auto) 0.2 % 09/30/24 03:39 Neut # (Auto) 9.58 10^3/uL (1.8-7.7) H 09/30/24 03:39 Lymph # (Auto) 2.7 10^3/uL (0.8-4.8) 09/30/24 03:39 [place] # (Auto) 0.7 10^3/uL (0.2-0.9) 09/30/24 03:39 Eos # (Auto) 0.0 10^3/uL (0.0-0.8) 09/30/24 03:39 Baso # (Auto) 0.0 10^3/uL (0.0-0.1) 09/30/24 03:39 Nucleated RBC % (auto) 0 % 09/30/24 03:39 Nucleated RBCs # 0.0 /100WBC 09/30/24 03:39 Blood Type O Negative 09/30/24 04:19 Rho(D) Type Rh negative 09/30/24 04:19 Antibody Screen Positive 09/30/24 04:19 Antibody Identification Anti-D 09/30/24 04:19 Screen Negative (Negative) 09/30/24 21:22 Vitals Last Vital Signs Temp 98.0 F 10/01/24 10:53 Pulse 71 10/01/24 10:53 Resp 16 10/01/24 10:53 BP 105/75 10/01/24 10:53 O2 Del Method Room Air 10/01/24 00:00 Results Labs OB ([facility]): Obstetrics US 06/28/24 Blood Type O Negative 09/30/24 Antibody Screen Positive 09/30/24 Hct 32.4 % (36-47) L 09/30/24 Hgb 10.80 g/dL (11.27-16.99) L 09/30/24 Rho(D) Type Rh negative 09/30/24 Plt Count 191 10^3/cmm (157-399) 09/30/24 Discharge Plan Discharge Patient Disposition: Home Condition: Stable Prescriptions: New ibuprofen 800 mg Tablet 800 mg PO TID Qty: 90 0RF docusate sodium 100 mg Capsule 100 mg PO BID Qty: 60 0RF Continued PNV cmb#95-ferrous fumarate-FA [] 28 mg iron- 800 mcg Tablet 1 tab PO DAILY Qty: 90 0RF Discontinued valacyclovir 500 mg PO 2XD Discharge Orders: Discharge Order (Routine); Ordered 10/01/24 Ordered By: Jaz Trinidad Referrals: Jaz Trinidad, [Physician] - (Please call [email or web address] to schedule follow up appointment.) Discharge Diet: Usual diet Discharge Activity: Resume usual activity Patient Instructions: Depression (DC), Opioid Safety (DC), Preeclampsia and Eclampsia After Delivery (GEN), Hemorrhage (DC), OB Discharge Report, OB Food/Drug Interaction Guide, OB Care at Home, Opioid Safety, OB Vaginal Deliveries, Abnormal Bleeding Activity Restrictions/Additional Instructions: Pelvic rest for [address] Trinidad's office tomorrow to schedule a 6 week follo w-up appointment. Discharge Attestations MOTION PICTURE NARRATOR Time Spent in Discharge Care*: less than 30 min Status at Discharge: Cognitive status at discharge: cognitively intact , Behavioral status at discharge: cooperative , Coding Level of Care Code Acute Code for Chg Fwd Diagnoses Spontaneous vaginal delivery O80
[2024-10-01] MEDS: ibuprofen 800 mg tablet PO ×2 (14:50)
[2024-10-01 15:30] VITALS: BP 111/69; PULSE 70; RESP 15; TEMP 36.6; TEMP 36.7; O2SAT 100
== END 2024-10-01 15:35 | disposition home or self-care (01) | DRG 807 ==
LOC: OPOB 13:04 → OBGYN 13:04
PROVIDERS: Admitting Provider Family Medicine; PCP Family Medicine; Visit Provider Family Medicine
DX: O98.32 Other infections with a predominantly sexual mode of transmission complicating childbirth (principal); Z37.0 Single live birth; A60.00 Herpesviral infection of urogenital system, unspecified; O69.81X0 Labor and delivery complicated by cord around neck, without compression, not applicable or unspecified; O69.2XX0 Labor and delivery complicated by other cord entanglement, with compression, not applicable or unspecified; Z3A.38 38 weeks gestation of pregnancy
CPT/HCPCS: 36415; 36430; 59025; 59409; 85025; 85027; 85460; 86850; 86870; 86900; 90384; 99211; J9999

== ENCOUNTER → 2024-12-14 15:32 | Outpatient (BNVA) | payer MEDICAID, SELFPAY | PROVIDERS: PCP Family Medicine; Referring Provider Family Medicine; Visit Provider Nurse Practitioner Women's Health | DX: Z30.014 Encounter for initial prescription of intrauterine contraceptive device (principal) | CPT/HCPCS: 81025 ==

== ENCOUNTER → 2025-01-03 10:32 | Outpatient (BNVA) | payer MEDICAID, SELFPAY | PROVIDERS: PCP Family Medicine; Visit Provider Nurse Practitioner Women's Health | DX: Z30.014 Encounter for initial prescription of intrauterine contraceptive device (principal) | CPT/HCPCS: 81025 ==

== ENCOUNTER 2025-02-21 11:25 | Outpatient (CLI) | payer MEDICAID, SELFPAY ==
--- NOTE | 2025-02-21 11:30 | XR_ITS ---
WS: [id number] Right hand, 3 views, 02/21/2025 Clinical Data: R HAND PAIN Comparison: None. Findings: No fractures or dislocations are seen. The soft tissues are unremarkable. The joint spaces are normal No periarticular demineralization or calcifications are seen. XR/XR hand RT min 3V* [id number] Impression: Negative right hand.
--- NOTE | 2025-02-21 11:30 | XR_ITS ---
WS: [id number] Left hand, 3 views, 02/21/2025 Clinical Data: L HAND PAIN Comparison: None. Findings: No fractures or dislocations are seen. The soft tissues are unremarkable. The joint spaces are normal No periarticular demineralization or calcifications are seen. XR/XR hand LT min 3V* [id number] Impression: Negative left hand.
== END 2025-02-21 11:26 | disposition home or self-care (01) ==
LOC: RAD 11:26
PROVIDERS: PCP Family Medicine; Visit Provider Family Medicine
DX: M79.642 Pain in left hand (principal); M79.641 Pain in right hand
CPT/HCPCS: 73130